=== PATIENT | male | born 1955 | race Two or more races ===

== ENCOUNTER 2022-05-05 05:05 | Inpatient (IN) | payer OTHER, MEDICAID ==
[~2022-05-05] VITALS: Ht 175.3 cm; Wt 167.0 kg
[2022-05-05 06:11] LABS: Basophils # (auto) 0 10 ^3/uL (0-0.2); Eosinophils # (auto) 0.2 10 ^3/uL (0-0.8); Eosinophils % (auto) 4.7 % (0.0-7.0); Hemoglobin 11.1 g/dL (13.5-17.5); Mean Corpuscular Hemoglobin 23.6 pg (28.0-32.0)
[2022-05-05 06:15] LABS: Basophils % (auto) 1.1 % (0.0-2.0); Hematocrit 36.4 % (41.0-53.0); Lymphocytes # (auto) 1.1 10 ^3/uL (0.4-5.4); Lymphocytes % (auto) 24.6 % (10.0-50.0); Mean Corpuscular Hgb Conc. 30.6 g/dL (32.0-36.0); Mean Corpuscular Volume 77.2 fL (80.0-100.0); Monocytes # (auto) 0.5 10 ^3/uL (0-1.3); Monocytes % (auto) 10.5 % (0.0-12.0); Neutrophils # (auto) 2.5 10 ^3/uL (1.6-8.6); Neutrophils % (auto) 59.1 % (37.0-80.0); Nucleated Red Blood Cells % 0.2 %; Red Blood Cells 4.71 10^6/uL (4.5-5.90); Red Cell Distribution Width 14.4 % (11.8-14.3); White Blood Cell 4.3 10^3/uL (4.4-10.8)
[2022-05-05 06:27] LABS: Albumin 3.6 g/dL (3.4-5.0); Calcium 8.4 mg/dL (8.5-10.1); Potassium 4.6 mmol/L (3.5-5.1)
[2022-05-05 06:31] LABS: BUN/Creatinine Ratio 13.1; Bilirubin, Total 0.4 mg/dL (0.2-1.0); Total Protein 7.9 g/dL (6.4-8.2)
[2022-05-05] MEDS ORDERED: FUROSEMIDE 40 MG/4 ML VIAL IV ONE (06:45)
[2022-05-05] MEDS ORDERED: IOHEXOL 350 MG/ML 100ML IJ ONE (11:18)
[2022-05-05] MEDS ORDERED: HYDROcodone-ACET 10/325MG TAB PO ONE (15:15)
[2022-05-05] MEDS ORDERED: NITROGLYCERIN 0.4 MG SL TAB SL PRN (16:00)
[2022-05-05] MEDS ORDERED: MORPHINE SULFATE INJ 2 MG/ml SYRG IV PRN ×2 (16:00)
[2022-05-05] MEDS ORDERED: ONDANSETRON HCL 4 MG/2 ML VIAL IV PRN (16:00)
[2022-05-05] MEDS ORDERED: ACETAMINOPHEN 325 MG TAB PO PRN (16:00)
[2022-05-05] MEDS ORDERED: IPRATROPIUM BROM 0.5 MG/2.5ML INH SOL NEB PRN (17:15)
[2022-05-05] MEDS ORDERED: ALBUTEROL SULF 2.5 MG/0.5ML(0.5%) NEB SOLN NEB PRN (17:15)
[2022-05-05] MEDS ORDERED: cefTRIAXone 1GM/50ML D5W 50 ML IV SCH (17:30)
[2022-05-05 18:17] VITALS: BP 147/90
[2022-05-05] MEDS: IPRATROPIUM BROM 0.5 MG/2.5ML INH SOL NEB SCH ×2 (18:35→22:40)
[2022-05-05] MEDS: ACETYLCYSTEINE 20%(200MG/ML) SOL 4ML NEB SCH (18:35)
[2022-05-05] MEDS: ALBUTEROL SULF 2.5 MG/0.5ML(0.5%) NEB SOLN NEB SCH ×2 (18:35→22:40)
[2022-05-05 18:43] VITALS: BP 152/69
[2022-05-05 18:46] VITALS: BP 152/69
[2022-05-05] MEDS ORDERED: IPRIH INH (19:08)
[2022-05-05] MEDS ORDERED: CARV12.544 PO (19:08)
[2022-05-05] MEDS ORDERED: PRED10TA PO (19:08)
[2022-05-05] MEDS ORDERED: MORP30TA5 PO (19:08)
[2022-05-05] MEDS ORDERED: FORM20NE3 INH (19:08)
[2022-05-05] MEDS ORDERED: BUDE0.5S NEB (19:08)
[2022-05-05] MEDS ORDERED: ALBU108A5 INH (19:08)
[2022-05-05] MEDS ORDERED: FLUT1AER3 PO (19:08)
[2022-05-05] MEDS: AZITHROMYCIN 250 MG TAB PO SCH (19:53)
[2022-05-05] MEDS: HYDROcodone-ACET 5/325MG TAB PO PRN (21:17)
[2022-05-05 22:20] VITALS: BP 144/76
[2022-05-06] MEDS: PIPERACILLIN-TAZOB 3.375GM 100 ML IV SCH ×5 (00:24→23:15)
[2022-05-06] MEDS: ALBUTEROL SULF 2.5 MG/0.5ML(0.5%) NEB SOLN NEB SCH ×6 (02:00→22:18)
[2022-05-06] MEDS: IPRATROPIUM BROM 0.5 MG/2.5ML INH SOL NEB SCH ×6 (02:00→22:19)
[2022-05-06 05:25] VITALS: BP 137/79
[2022-05-06 05:54] LABS: Basophils # (auto) 0 10 ^3/uL (0-0.2); Basophils % (auto) 0.8 % (0.0-2.0); Eosinophils # (auto) 0.2 10 ^3/uL (0-0.8); Lymphocytes # (auto) 0.7 10 ^3/uL (0.4-5.4); Monocytes # (auto) 0.5 10 ^3/uL (0-1.3); Nucleated Red Blood Cells % 0.1 %; Red Cell Distribution Width 14.5 % (11.8-14.3)
[2022-05-06 05:56] LABS: Potassium 4.1 mmol/L (3.5-5.1)
[2022-05-06 06:00] LABS: Eosinophils % (auto) 3.4 % (0.0-7.0); Hematocrit 37.6 % (41.0-53.0); Hemoglobin 11.6 g/dL (13.5-17.5); Lymphocytes % (auto) 14.6 % (10.0-50.0); Mean Corpuscular Hemoglobin 23.3 pg (28.0-32.0); Mean Corpuscular Hgb Conc. 30.8 g/dL (32.0-36.0); Mean Corpuscular Volume 75.8 fL (80.0-100.0); Neutrophils # (auto) 3.5 10 ^3/uL (1.6-8.6); Neutrophils % (auto) 71.2 % (37.0-80.0); Red Blood Cells 4.96 10^6/uL (4.5-5.90); White Blood Cell 4.9 10^3/uL (4.4-10.8)
[2022-05-06 06:02] LABS: Albumin 3.4 g/dL (3.4-5.0); BUN/Creatinine Ratio 14.8; Bilirubin, Total 0.7 mg/dL (0.2-1.0); Calcium 8.5 mg/dL (8.5-10.1); Total Protein 7.7 g/dL (6.4-8.2)
[2022-05-06] MEDS: ACETYLCYSTEINE 20%(200MG/ML) SOL 4ML NEB SCH ×3 (07:28→22:18)
[2022-05-06 09:00] VITALS: BP 125/79
[2022-05-06] MEDS: ENOXAPARIN SOD 40 MG/0.4 ML SYRINGE SC SCH (10:00)
[2022-05-06] MEDS: AZITHROMYCIN 250 MG TAB PO SCH (10:45)
[2022-05-06 11:06] LABS: INR 1.1 (0.9-1.15); Partial Thromboplastin Time 31.4 sec (23.6-33.0)
[2022-05-06 12:43] VITALS: BP 131/86
[2022-05-06] MEDS: HYDROcodone-ACET 5/325MG TAB PO PRN ×2 (14:55→23:15)
[2022-05-06 17:00] VITALS: BP 138/68
[2022-05-06 22:00] VITALS: BP 119/45
[2022-05-06] MEDS ORDERED: PERCOT PO (23:22)
[2022-05-07] MEDS: ALBUTEROL SULF 2.5 MG/0.5ML(0.5%) NEB SOLN NEB SCH ×6 (02:18→23:32)
[2022-05-07] MEDS: IPRATROPIUM BROM 0.5 MG/2.5ML INH SOL NEB SCH ×6 (02:18→23:32)
[2022-05-07] MEDS: HYDROcodone-ACET 10/325MG TAB PO PRN ×3 (04:31→19:54)
[2022-05-07] MEDS: PIPERACILLIN-TAZOB 3.375GM 100 ML IV SCH ×3 (05:12→19:55)
[2022-05-07 05:29] VITALS: BP 106/69
[2022-05-07] MEDS: ACETYLCYSTEINE 20%(200MG/ML) SOL 4ML NEB SCH ×3 (06:55→22:00)
[2022-05-07 08:48] VITALS: BP 113/71
[2022-05-07] MEDS ORDERED: ALBUTEROL SULF 2.5 MG/0.5ML(0.5%) NEB SOLN NEB PRN (09:15)
[2022-05-07] MEDS: ENOXAPARIN SOD 40 MG/0.4 ML SYRINGE SC SCH (11:26)
[2022-05-07] MEDS: AZITHROMYCIN 250 MG TAB PO SCH (11:26)
[2022-05-07 13:00] VITALS: BP 141/86
[2022-05-07 17:00] VITALS: BP 116/53
[2022-05-07 23:01] VITALS: BP 123/66
[2022-05-08] MEDS: PIPERACILLIN-TAZOB 3.375GM 100 ML IV SCH ×4 (01:43→20:14)
[2022-05-08] MEDS: HYDROcodone-ACET 10/325MG TAB PO PRN ×2 (01:45→20:15)
[2022-05-08] MEDS: IPRATROPIUM BROM 0.5 MG/2.5ML INH SOL NEB SCH ×6 (02:57→22:54)
[2022-05-08] MEDS: ALBUTEROL SULF 2.5 MG/0.5ML(0.5%) NEB SOLN NEB SCH ×6 (02:57→22:54)
[2022-05-08 04:53] VITALS: BP 126/56
[2022-05-08] MEDS: ACETYLCYSTEINE 20%(200MG/ML) SOL 4ML NEB SCH ×2 (06:00→16:08)
[2022-05-08 06:34] LABS: Basophils # (auto) 0.1 10 ^3/uL (0-0.2); Eosinophils # (auto) 0.2 10 ^3/uL (0-0.8); Hemoglobin 11.2 g/dL (13.5-17.5); Monocytes # (auto) 0.5 10 ^3/uL (0-1.3); Neutrophils # (auto) 2.8 10 ^3/uL (1.6-8.6); Neutrophils % (auto) 60.2 % (37.0-80.0); White Blood Cell 4.6 10^3/uL (4.4-10.8)
[2022-05-08 06:40] LABS: Basophils % (auto) 1.1 % (0.0-2.0); Eosinophils % (auto) 4.2 % (0.0-7.0); Hematocrit 36.3 % (41.0-53.0); Lymphocytes % (auto) 22.8 % (10.0-50.0); Mean Corpuscular Hemoglobin 23.8 pg (28.0-32.0); Mean Corpuscular Hgb Conc. 30.8 g/dL (32.0-36.0); Mean Corpuscular Volume 77.3 fL (80.0-100.0); Monocytes % (auto) 11.7 % (0.0-12.0); Nucleated Red Blood Cells % 0.2 %; Red Cell Distribution Width 14.7 % (11.8-14.3)
[2022-05-08 06:56] LABS: Potassium 4.2 mmol/L (3.5-5.1)
[2022-05-08 07:01] LABS: BUN/Creatinine Ratio 12.7; Calcium 8.8 mg/dL (8.5-10.1); Magnesium 2.3 mg/dL (1.6-2.6)
[2022-05-08 08:57] VITALS: BP 164/85
[2022-05-08] MEDS: ENOXAPARIN SOD 40 MG/0.4 ML SYRINGE SC SCH (09:53)
[2022-05-08] MEDS: AZITHROMYCIN 250 MG TAB PO SCH (09:53)
[2022-05-08 13:00] VITALS: BP 149/71
[2022-05-08 17:00] VITALS: BP 138/54
[2022-05-08 22:00] VITALS: BP 137/62
[2022-05-09 00:34] VITALS: BP 137/62
[2022-05-09] MEDS: PIPERACILLIN-TAZOB 3.375GM 100 ML IV SCH ×3 (02:03→14:25)
[2022-05-09] MEDS: HYDROcodone-ACET 10/325MG TAB PO PRN ×2 (02:03→08:16)
[2022-05-09] MEDS: IPRATROPIUM BROM 0.5 MG/2.5ML INH SOL NEB SCH ×4 (02:56→15:02)
[2022-05-09] MEDS: ALBUTEROL SULF 2.5 MG/0.5ML(0.5%) NEB SOLN NEB SCH ×4 (02:56→15:02)
[2022-05-09 05:00] VITALS: BP 121/64
[2022-05-09] MEDS: ENOXAPARIN SOD 40 MG/0.4 ML SYRINGE SC SCH (08:17)
[2022-05-09 09:00] VITALS: BP 132/53
[2022-05-09] MEDS ORDERED: GLYCOPYRROLATE 0.2 MG/ML 1ML VIAL IV ONE (09:30)
[2022-05-09] MEDS ORDERED: AMOX-277 PO (11:28)
[2022-05-09 13:00] VITALS: BP 114/63
[2022-05-09 17:00] VITALS: BP 137/76
== END 2022-05-09 18:28 | disposition home health service (06) | DRG 193 ==
LOC: ER 05:05 → EDBD 05:05 → TELE 15:46 → TELE-WESTW 17:50
PROVIDERS: ADMIT Internal Medicine; ATTEND Internal Medicine
PROC: 0WJ93ZZ Inspection of Right Pleural Cavity, Percutaneous Approach (ICD-10-PCS; principal; 2022-05-06)
DX: J18.9 Pneumonia, unspecified organism (principal); J96.21 Acute and chronic respiratory failure with hypoxia; I50.43 Acute on chronic combined systolic (congestive) and diastolic (congestive) heart failure; C34.90 Malignant neoplasm of unspecified part of unspecified bronchus or lung; J98.11 Atelectasis; Z68.41 Body mass index [BMI] 40.0-44.9, adult; E66.01 Morbid (severe) obesity due to excess calories; Z20.822 Contact with and (suspected) exposure to COVID-19; I11.0 Hypertensive heart disease with heart failure; I25.2 Old myocardial infarction; Z85.118 Personal history of other malignant neoplasm of bronchus and lung; Z92.21 Personal history of antineoplastic chemotherapy; Z92.3 Personal history of irradiation; Z99.81 Dependence on supplemental oxygen
CPT/HCPCS: 36415; 71045; 71275; 76604; 76942; 80048; 80053; 83735; 83880; 84439; 84443; 84484; 85025; 85610; 85730; 93005; 94640; 96365; 96375; 99291; G0378; J2543

== ENCOUNTER 2022-06-19 17:33 | Inpatient (IN) | payer OTHER, MEDICAID ==
[~2022-06-19] VITALS: Ht 185.4 cm; Wt 154.9 kg
[2022-06-19 08:00] VITALS: BP 168/131
[~2022-06-19 17:33] MED LIST: ALBU108A5 INH; AMOX-277 PO; BUDE0.5S NEB; CARV12.544 PO; FLUT1AER3 PO; FORM20NE3 INH; IPRIH INH; MORP30TA5 PO; PERCOT PO; PRED10TA PO
[2022-06-19] MEDS ORDERED: cefTRIAXone 1GM/50ML D5W 50 ML IV ONE (18:15)
[2022-06-19] MEDS ORDERED: FUROSEMIDE 40 MG/4 ML VIAL IV ONE (18:15)
[2022-06-19] MEDS ORDERED: NITROGLYCERIN 0.4 MG SL TAB SL ONE ×3 (18:15→18:25)
[2022-06-19] MEDS ORDERED: methylPREDNISolone SOD SUCC 125 MG/2 ML VL IV ONE (18:15)
[2022-06-19 18:52] LABS: Basophils # (auto) 0.1 10 ^3/uL (0-0.2); Basophils % (auto) 0.7 % (0.0-2.0); Eosinophils # (auto) 0.1 10 ^3/uL (0-0.8); Eosinophils % (auto) 0.9 % (0.0-7.0); Hematocrit 44.5 % (41.0-53.0); Lymphocytes # (auto) 0.7 10 ^3/uL (0.4-5.4); Lymphocytes % (auto) 6.3 % (10.0-50.0); Mean Corpuscular Hemoglobin 22.2 pg (28.0-32.0); Mean Corpuscular Hgb Conc. 29.2 g/dL (32.0-36.0); Mean Corpuscular Volume 76.1 fL (80.0-100.0); Monocytes # (auto) 0.2 10 ^3/uL (0-1.3); Monocytes % (auto) 1.9 % (0.0-12.0); Neutrophils # (auto) 9.5 10 ^3/uL (1.6-8.6); Neutrophils % (auto) 90.2 % (37.0-80.0); Nucleated Red Blood Cells % 0.1 %; Red Blood Cells 5.85 10^6/uL (4.5-5.90); Red Cell Distribution Width 15.1 % (11.8-14.3); White Blood Cell 10.5 10^3/uL (4.4-10.8)
[2022-06-19] MEDS ORDERED: METOPROLOL TARTRATE 1MG/1ML-5ML VIAL IV ONE ×2 (19:00→19:15)
[2022-06-19] MEDS ORDERED: dilTIAZem 125mg/125ml BAG KIT 125 ML IV ONE (19:00)
[2022-06-19 19:05] LABS: Albumin 3.9 g/dL (3.4-5.0); Calcium 8.6 mg/dL (8.5-10.1)
[2022-06-19 19:09] LABS: BUN/Creatinine Ratio 22.3
[2022-06-19 19:11] LABS: Bilirubin, Total 0.7 mg/dL (0.2-1.0); Total Protein 8.9 g/dL (6.4-8.2)
[2022-06-19 20:00] VITALS: BP 168/131
[2022-06-19 21:39] VITALS: BP 121/89
[2022-06-19] MEDS ORDERED: AZITHROMYCIN 500MG/ 250ML 250 ML IV ONE (22:00)
[2022-06-19] MEDS ORDERED: HYDROcodone-ACET 5/325MG TAB PO PRN (22:00)
[2022-06-19] MEDS ORDERED: ONDANSETRON HCL 4 MG/2 ML VIAL IV PRN (22:00)
[2022-06-19] MEDS ORDERED: ACETAMINOPHEN 325 MG TAB PO PRN (22:00)
[2022-06-19 22:15] VITALS: BP 136/112
[2022-06-19] MEDS ORDERED: MORPHINE SULFATE INJ 2 MG/ml SYRG IV PRN (22:15)
[2022-06-19] MEDS ORDERED: NITROGLYCERIN 0.4 MG SL TAB SL PRN (22:15)
[2022-06-19] MEDS: ENOXAPARIN SOD 40 MG/0.4 ML SYRINGE SC SCH (22:30)
[2022-06-19] MEDS: CARVEDILOL 12.5 MG TAB PO SCH (22:56)
[2022-06-20] VITALS (7 sets, daily range): BP systolic 104–180; BP diastolic 70–108
[2022-06-20 05:21] LABS: Eosinophils # (auto) 0 10 ^3/uL (0-0.8); Lymphocytes # (auto) 0.7 10 ^3/uL (0.4-5.4); Monocytes # (auto) 0.7 10 ^3/uL (0-1.3); Nucleated Red Blood Cells % 0.1 %
[2022-06-20 05:37] LABS: Basophils # (auto) 0.1 10 ^3/uL (0-0.2); Basophils % (auto) 0.3 % (0.0-2.0); Hematocrit 44.5 % (41.0-53.0); Hemoglobin 13.7 g/dL (13.5-17.5); Lymphocytes % (auto) 3.7 % (10.0-50.0); Mean Corpuscular Hemoglobin 23.3 pg (28.0-32.0); Mean Corpuscular Hgb Conc. 30.9 g/dL (32.0-36.0); Mean Corpuscular Volume 75.6 fL (80.0-100.0); Neutrophils # (auto) 16.4 10 ^3/uL (1.6-8.6); Red Blood Cells 5.89 10^6/uL (4.5-5.90); Red Cell Distribution Width 15.1 % (11.8-14.3); White Blood Cell 17.9 10^3/uL (4.4-10.8)
[2022-06-20 05:47] LABS: Potassium 4.6 mmol/L (3.5-5.1)
[2022-06-20 05:56] LABS: Albumin 3.5 g/dL (3.4-5.0); BUN/Creatinine Ratio 22.1; Bilirubin, Total 0.6 mg/dL (0.2-1.0); Calcium 8.8 mg/dL (8.5-10.1)
[2022-06-20] MEDS: cefTRIAXone 1GM/50ML D5W 50 ML IV SCH (09:00)
[2022-06-20] MEDS ORDERED: methylPREDNISolone SOD SUCC 125 MG/2 ML VL IV SCH (10:00)
[2022-06-20] MEDS: ENOXAPARIN SOD 40 MG/0.4 ML SYRINGE SC SCH (10:00)
[2022-06-20] MEDS: ASPirin 81 mg TAB PO SCH (10:00)
[2022-06-20] MEDS: PANTOPRAZOLE 40 MG TAB PO SCH (11:07)
[2022-06-20] MEDS: CARVEDILOL 12.5 MG TAB PO SCH ×2 (11:07→22:00)
[2022-06-20] MEDS: FUROSEMIDE 40 MG TAB PO SCH (11:11)
[2022-06-20] MEDS ORDERED: REMDESIVIR PER PHARMACY 0 ML IV SCH (12:30)
[2022-06-20] MEDS ORDERED: OXYC325T14 PO (13:54)
[2022-06-20] MEDS ORDERED: PRED20TA2 PO (13:54)
[2022-06-20] MEDS ORDERED: REMDESIVIR 200 MG in NS 210ml LOADING DOSE ADULT IV ONE (15:00)
[2022-06-20] MEDS: AZITHROMYCIN 500MG/ 250ML 250 ML IV SCH (21:12)
[2022-06-20 22:32] LABS: Urine Bacteria NONE SEEN /hpf (None Seen); Urine Blood 3+ /uL (Negative); Urine Budding Yeast FEW /hpf (None Seen); Urine Hyaline Cast MANY /lpf (0 - 2); Urine Mucus FEW (None Seen); Urine Specific Gravity 1.026 (1.001-1.035); Urine WBC 36 /hpf (0 - 3)
[2022-06-20] MEDS ORDERED: ETOMIDATE (2MG/ML) 20ML VIAL IV ONE (23:15)
[2022-06-20] MEDS: MIDAZOLAM DRIP 50 mg/50mL 50 ML IV SCH (23:15)
[2022-06-20] MEDS ORDERED: ROCURONIUM 10MG/ML 10ML VIAL IV ONE ×2 (23:15→23:30)
[2022-06-20] MEDS ORDERED: MIDAZOLAM HCL 2MG/2ML 2ml VIAL (1mg/ml) ONE (23:16)
[2022-06-20] MEDS ORDERED: MIDAZOLAM DRIP 50 mg/50mL 50 ML IV ONE (23:17)
[2022-06-20] MEDS ORDERED: MIDAZOLAM HCL 2MG/2ML 2ml VIAL (1mg/ml) IV ONE (23:30)
[2022-06-21] VITALS (66 sets, daily range): BP systolic 85–130; BP diastolic 40–85
[2022-06-21] MEDS ORDERED: ETOMIDATE (2MG/ML) 20ML VIAL IV ONE
[2022-06-21] MEDS ORDERED: ATROPINE SULF 1 MG/10ml SYR IV ONE ×2
[2022-06-21] MEDS ORDERED: EPINEPHrine HCL 1 MG/10 ML SYRG IV ONE
[2022-06-21] MEDS: fentaNYL Drip 2500mCg/250mlNS 250 ML IV SCH (02:50)
[2022-06-21] MEDS: MIDAZOLAM DRIP 50 mg/50mL 50 ML IV SCH ×6 (02:55→21:07)
[2022-06-21 09:08] LABS: Albumin 2.8 g/dL (3.4-5.0); Calcium 8.5 mg/dL (8.5-10.1); Potassium 5.4 mmol/L (3.5-5.1)
[2022-06-21 09:11] LABS: BUN/Creatinine Ratio 27.3; Bilirubin, Total 0.3 mg/dL (0.2-1.0); Total Protein 7.4 g/dL (6.4-8.2)
[2022-06-21] MEDS: ASPirin 81 mg TAB PO SCH (09:44)
[2022-06-21] MEDS: CARVEDILOL 12.5 MG TAB PO SCH ×2 (09:47→22:00)
[2022-06-21] MEDS: FUROSEMIDE 40 MG TAB PO SCH (09:48)
[2022-06-21] MEDS: PANTOPRAZOLE 40 MG TAB PO SCH (09:48)
[2022-06-21] MEDS: ENOXAPARIN SOD 40 MG/0.4 ML SYRINGE SC SCH (09:49)
[2022-06-21] MEDS: cefTRIAXone 1GM/50ML D5W 50 ML IV SCH (09:54)
[2022-06-21] MEDS: DexAMETHasone SOD PHOS 10MG/1ML VIAL INJ IV SCH (09:54)
[2022-06-21 11:09] LABS: Basophils # (auto) 0 10 ^3/uL (0-0.2); Basophils % (auto) 0.2 % (0.0-2.0); Eosinophils # (auto) 0 10 ^3/uL (0-0.8); Hemoglobin 13.1 g/dL (13.5-17.5); Lymphocytes # (auto) 0.6 10 ^3/uL (0.4-5.4); Lymphocytes % (auto) 3.3 % (10.0-50.0); Mean Corpuscular Hemoglobin 22.4 pg (28.0-32.0); Mean Corpuscular Hgb Conc. 29.1 g/dL (32.0-36.0); Monocytes % (auto) 11.4 % (0.0-12.0); Neutrophils % (auto) 85.1 % (37.0-80.0); Nucleated Red Blood Cells % 0.1 %; Red Blood Cells 5.84 10^6/uL (4.5-5.90); Red Cell Distribution Width 15.5 % (11.8-14.3); White Blood Cell 17.6 10^3/uL (4.4-10.8)
[2022-06-21] MEDS: NOREPINEPHRINE 8 MG/250ML KIT 250 ML IV SCH (12:00)
[2022-06-21 13:49] LABS: INR 1.13 (0.9-1.15); Partial Thromboplastin Time 29.1 sec (24.6-33.4)
[2022-06-21] MEDS ORDERED: FUROSEMIDE 20 MG/2 ML VIAL IV ONE (14:45)
[2022-06-21] MEDS ORDERED: InsuLIN REG 1unit/0.01ml Soln (100units/ml) IV ONE (14:45)
[2022-06-21] MEDS ORDERED: ALBUTEROL SULF 2.5 MG/0.5ML(0.5%) NEB SOLN NEB ONE (14:45)
[2022-06-21] MEDS ORDERED: SODIUM BICARBONATE 8.4% INJ 50ML SYRINGE IV ONE (14:45)
[2022-06-21] MEDS ORDERED: DEXTROSE (50%) 50ML SYRG IV ONE (14:45)
[2022-06-21] MEDS ORDERED: LIDOCAINE 1% (LOCAL ANESTH.) PF 5ml SDV ID ONE (17:30)
[2022-06-21] MEDS: REMDESIVIR 100mg 100 MG in SODIUM CHL 0.9% 230 ML IV SCH (18:14)
[2022-06-21] MEDS: AZITHROMYCIN 500MG/ 250ML 250 ML IV SCH (21:08)
[2022-06-21] MEDS: SODIUM CHLOR 0.9% PF (SALINE LOCK) 10ML VIAL/SYR IV SCH (22:00)
[2022-06-22] VITALS (87 sets, daily range): BP systolic 90–135; BP diastolic 38–99
[2022-06-22] MEDS: MIDAZOLAM DRIP 50 mg/50mL 50 ML IV SCH ×6 (01:45→20:11)
[2022-06-22 04:23] LABS: Basophils # (auto) 0 10 ^3/uL (0-0.2); Eosinophils # (auto) 0 10 ^3/uL (0-0.8); Mean Corpuscular Volume 74.5 fL (80.0-100.0); White Blood Cell 13.6 10^3/uL (4.4-10.8)
[2022-06-22 04:24] LABS: Basophils % (auto) 0.2 % (0.0-2.0); Hematocrit 36.2 % (41.0-53.0); Hemoglobin 10.7 g/dL (13.5-17.5); Lymphocytes # (auto) 0.4 10 ^3/uL (0.4-5.4); Lymphocytes % (auto) 2.8 % (10.0-50.0); Mean Corpuscular Hgb Conc. 29.6 g/dL (32.0-36.0); Monocytes # (auto) 1.1 10 ^3/uL (0-1.3); Neutrophils # (auto) 12.1 10 ^3/uL (1.6-8.6); Nucleated Red Blood Cells % 0.1 %; Red Blood Cells 4.86 10^6/uL (4.5-5.90); Red Cell Distribution Width 14.8 % (11.8-14.3)
[2022-06-22 04:41] LABS: Potassium 3.9 mmol/L (3.5-5.1)
[2022-06-22 04:47] LABS: Albumin 2.5 g/dL (3.4-5.0); BUN/Creatinine Ratio 37.6; Bilirubin, Total 0.3 mg/dL (0.2-1.0); Calcium 7.8 mg/dL (8.5-10.1); Total Protein 6.5 g/dL (6.4-8.2)
[2022-06-22] MEDS: fentaNYL Drip 2500mCg/250mlNS 250 ML IV SCH (06:37)
[2022-06-22] MEDS: ENOXAPARIN SOD 40 MG/0.4 ML SYRINGE SC SCH (08:39)
[2022-06-22] MEDS: PANTOPRAZOLE 40 MG TAB PO SCH (08:39)
[2022-06-22] MEDS: CARVEDILOL 12.5 MG TAB PO SCH ×2 (08:39→22:00)
[2022-06-22] MEDS: DexAMETHasone SOD PHOS 10MG/1ML VIAL INJ IV SCH (08:40)
[2022-06-22] MEDS: cefTRIAXone 1GM/50ML D5W 50 ML IV SCH ×2 (08:40→09:00)
[2022-06-22] MEDS: FUROSEMIDE 20 MG/2 ML VIAL IV SCH (08:41)
[2022-06-22] MEDS: ASPirin 81 mg TAB PO SCH (08:41)
[2022-06-22] MEDS: SODIUM CHLOR 0.9% PF (SALINE LOCK) 10ML VIAL/SYR IV SCH ×2 (08:42→22:00)
[2022-06-22] MEDS ORDERED: EPINEPHrine HCL 1 MG/10 ML SYRG IV ONE (11:55)
[2022-06-22] MEDS ORDERED: ATROPINE SULF 1 MG/10ml SYR IV ONE (11:55)
[2022-06-22] MEDS: NOREPINEPHRINE 8 MG/250ML KIT 250 ML IV SCH (12:00)
[2022-06-22] MEDS: REMDESIVIR 100mg 100 MG in SODIUM CHL 0.9% 230 ML IV SCH (15:15)
[2022-06-22] MEDS: AZITHROMYCIN 500MG/ 250ML 250 ML IV SCH (21:00)
[2022-06-23] VITALS (88 sets, daily range): BP systolic 85–148; BP diastolic 15–92
[2022-06-23 05:10] LABS: Basophils # (auto) 0 10 ^3/uL (0-0.2); Eosinophils # (auto) 0 10 ^3/uL (0-0.8); Hemoglobin 11.3 g/dL (13.5-17.5); Lymphocytes # (auto) 0.3 10 ^3/uL (0.4-5.4); Mean Corpuscular Volume 74.1 fL (80.0-100.0); Monocytes # (auto) 0.9 10 ^3/uL (0-1.3); Neutrophils # (auto) 11.8 10 ^3/uL (1.6-8.6); Nucleated Red Blood Cells % 0.2 %
[2022-06-23 05:12] LABS: Basophils % (auto) 0.2 % (0.0-2.0); Hematocrit 37.3 % (41.0-53.0); Lymphocytes % (auto) 2.1 % (10.0-50.0); Mean Corpuscular Hemoglobin 22.5 pg (28.0-32.0); Mean Corpuscular Hgb Conc. 30.3 g/dL (32.0-36.0); Neutrophils % (auto) 90.7 % (37.0-80.0); Red Blood Cells 5.04 10^6/uL (4.5-5.90); Red Cell Distribution Width 14.8 % (11.8-14.3)
[2022-06-23 05:21] LABS: Albumin 2.6 g/dL (3.4-5.0); Calcium 8.3 mg/dL (8.5-10.1); Potassium 4.3 mmol/L (3.5-5.1)
[2022-06-23 05:25] LABS: BUN/Creatinine Ratio 36.4; Bilirubin, Total 0.3 mg/dL (0.2-1.0); Total Protein 6.9 g/dL (6.4-8.2)
[2022-06-23] MEDS: MIDAZOLAM DRIP 50 mg/50mL 50 ML IV SCH ×3 (07:27→16:21)
[2022-06-23] MEDS: fentaNYL Drip 2500mCg/250mlNS 250 ML IV SCH (09:05)
[2022-06-23] MEDS: PANTOPRAZOLE 40 MG TAB PO SCH (10:00)
[2022-06-23] MEDS: CARVEDILOL 12.5 MG TAB PO SCH ×2 (10:00→22:00)
[2022-06-23] MEDS: cefTRIAXone 1GM/50ML D5W 50 ML IV SCH (10:03)
[2022-06-23] MEDS: FUROSEMIDE 20 MG/2 ML VIAL IV SCH (10:03)
[2022-06-23] MEDS: ENOXAPARIN SOD 40 MG/0.4 ML SYRINGE SC SCH (10:04)
[2022-06-23] MEDS: DexAMETHasone SOD PHOS 10MG/1ML VIAL INJ IV SCH (10:05)
[2022-06-23] MEDS: SODIUM CHLOR 0.9% PF (SALINE LOCK) 10ML VIAL/SYR IV SCH ×2 (10:06→22:00)
[2022-06-23] MEDS: ASPirin 81 mg TAB PO SCH (10:07)
[2022-06-23] MEDS: NOREPINEPHRINE 8 MG/250ML KIT 250 ML IV SCH (12:00)
[2022-06-23] MEDS: REMDESIVIR 100mg 100 MG in SODIUM CHL 0.9% 230 ML IV SCH (16:22)
[2022-06-23] MEDS: AZITHROMYCIN 500MG/ 250ML 250 ML IV SCH (20:53)
[2022-06-24] VITALS (42 sets, daily range): BP systolic 92–170; BP diastolic 45–123
[2022-06-24] MEDS: fentaNYL Drip 2500mCg/250mlNS 250 ML IV SCH (02:45)
[2022-06-24 03:49] LABS: Basophils % (auto) 0.4 % (0.0-2.0); Eosinophils # (auto) 0 10 ^3/uL (0-0.8); Nucleated Red Blood Cells % 0.1 %
[2022-06-24 03:52] LABS: Basophils # (auto) 0.1 10 ^3/uL (0-0.2); Hemoglobin 11.3 g/dL (13.5-17.5); Lymphocytes # (auto) 0.3 10 ^3/uL (0.4-5.4); Lymphocytes % (auto) 2.8 % (10.0-50.0); Mean Corpuscular Hgb Conc. 29.8 g/dL (32.0-36.0); Mean Corpuscular Volume 73.9 fL (80.0-100.0); Monocytes # (auto) 0.8 10 ^3/uL (0-1.3); Monocytes % (auto) 6.8 % (0.0-12.0); Neutrophils # (auto) 10.1 10 ^3/uL (1.6-8.6); Red Blood Cells 5.14 10^6/uL (4.5-5.90); Red Cell Distribution Width 14.9 % (11.8-14.3); White Blood Cell 11.2 10^3/uL (4.4-10.8)
[2022-06-24 04:09] LABS: Calcium 8.1 mg/dL (8.5-10.1); Potassium 4.4 mmol/L (3.5-5.1)
[2022-06-24 04:15] LABS: Albumin 2.5 g/dL (3.4-5.0); BUN/Creatinine Ratio 36.4; Bilirubin, Total 0.2 mg/dL (0.2-1.0); Total Protein 6.7 g/dL (6.4-8.2)
[2022-06-24] MEDS: cefTRIAXone 1GM/50ML D5W 50 ML IV SCH ×2 (09:38→17:08)
[2022-06-24] MEDS: ENOXAPARIN SOD 40 MG/0.4 ML SYRINGE SC SCH (09:39)
[2022-06-24] MEDS: SODIUM CHLOR 0.9% PF (SALINE LOCK) 10ML VIAL/SYR IV SCH (09:40)
[2022-06-24] MEDS: DexAMETHasone SOD PHOS 10MG/1ML VIAL INJ IV SCH (09:41)
[2022-06-24] MEDS: PANTOPRAZOLE 40 MG TAB PO SCH (10:00)
[2022-06-24] MEDS: ASPirin 81 mg TAB PO SCH (10:00)
[2022-06-24] MEDS: NOREPINEPHRINE 8 MG/250ML KIT 250 ML IV SCH (12:00)
[2022-06-24] MEDS: AZITHROMYCIN 500MG/ 250ML 250 ML IV SCH (21:00)
[2022-06-25] VITALS (55 sets, daily range): BP systolic 96–188; BP diastolic 43–110
[2022-06-25] MEDS: MIDAZOLAM DRIP 50 mg/50mL 50 ML IV SCH ×3 (00:18→21:29)
[2022-06-25] MEDS: SODIUM CHLOR 0.9% PF (SALINE LOCK) 10ML VIAL/SYR IV SCH ×3 (00:19→21:30)
[2022-06-25] MEDS: fentaNYL Drip 2500mCg/250mlNS 250 ML IV SCH ×2 (01:59→21:30)
[2022-06-25 03:42] LABS: Basophils # (auto) 0 10 ^3/uL (0-0.2); Eosinophils # (auto) 0 10 ^3/uL (0-0.8); Lymphocytes # (auto) 0.7 10 ^3/uL (0.4-5.4); Nucleated Red Blood Cells % 0.2 %
[2022-06-25 03:46] LABS: Basophils % (auto) 0.2 % (0.0-2.0); Eosinophils % (auto) 0.1 % (0.0-7.0); Hematocrit 41.5 % (41.0-53.0); Hemoglobin 12.4 g/dL (13.5-17.5); Lymphocytes % (auto) 4.9 % (10.0-50.0); Mean Corpuscular Hemoglobin 22.5 pg (28.0-32.0); Mean Corpuscular Hgb Conc. 29.9 g/dL (32.0-36.0); Monocytes # (auto) 1.1 10 ^3/uL (0-1.3); Monocytes % (auto) 7.5 % (0.0-12.0); Neutrophils # (auto) 12.4 10 ^3/uL (1.6-8.6); Neutrophils % (auto) 87.3 % (37.0-80.0); Red Blood Cells 5.54 10^6/uL (4.5-5.90); Red Cell Distribution Width 14.9 % (11.8-14.3); White Blood Cell 14.2 10^3/uL (4.4-10.8)
[2022-06-25 04:01] LABS: BUN/Creatinine Ratio 38.4; Calcium 8.2 mg/dL (8.5-10.1); Potassium 4.4 mmol/L (3.5-5.1)
[2022-06-25] MEDS: PANTOPRAZOLE 40 MG TAB PO SCH (10:00)
[2022-06-25] MEDS: ENOXAPARIN SOD 40 MG/0.4 ML SYRINGE SC SCH (11:52)
[2022-06-25] MEDS: DexAMETHasone SOD PHOS 10MG/1ML VIAL INJ IV SCH (11:52)
[2022-06-25] MEDS: cefTRIAXone 1GM/50ML D5W 50 ML IV SCH (11:52)
[2022-06-25] MEDS: ASPirin 81 mg TAB PO SCH (11:53)
[2022-06-25] MEDS: NOREPINEPHRINE 8 MG/250ML KIT 250 ML IV SCH (11:53)
[2022-06-25] MEDS: AZITHROMYCIN 500MG/ 250ML 250 ML IV SCH (21:29)
[2022-06-26] VITALS (105 sets, daily range): BP systolic 82–281; BP diastolic 31–231
[2022-06-26 03:23] LABS: Basophils # (auto) 0 10 ^3/uL (0-0.2); Red Cell Distribution Width 14.8 % (11.8-14.3)
[2022-06-26 03:28] LABS: Basophils % (auto) 0.2 % (0.0-2.0); Eosinophils # (auto) 0.3 10 ^3/uL (0-0.8); Hematocrit 42.4 % (41.0-53.0); Hemoglobin 12.5 g/dL (13.5-17.5); Lymphocytes # (auto) 1.3 10 ^3/uL (0.4-5.4); Lymphocytes % (auto) 8.7 % (10.0-50.0); Mean Corpuscular Hemoglobin 22.2 pg (28.0-32.0); Mean Corpuscular Hgb Conc. 29.6 g/dL (32.0-36.0); Monocytes # (auto) 1.9 10 ^3/uL (0-1.3); Monocytes % (auto) 13.1 % (0.0-12.0); Neutrophils # (auto) 11.2 10 ^3/uL (1.6-8.6); Nucleated Red Blood Cells % 0.3 %; Red Blood Cells 5.65 10^6/uL (4.5-5.90); White Blood Cell 14.7 10^3/uL (4.4-10.8)
[2022-06-26] MEDS: hydrALAZINE HCL 20 MG/ML VL IV PRN (03:42)
[2022-06-26 03:45] LABS: Albumin 2.9 g/dL (3.4-5.0); BUN/Creatinine Ratio 43.8; Calcium 8.3 mg/dL (8.5-10.1); Potassium 4.4 mmol/L (3.5-5.1)
[2022-06-26 03:48] LABS: Bilirubin, Total 0.3 mg/dL (0.2-1.0); Total Protein 7.1 g/dL (6.4-8.2)
[2022-06-26] MEDS: MIDAZOLAM DRIP 50 mg/50mL 50 ML IV SCH ×3 (06:38→23:48)
[2022-06-26] MEDS: fentaNYL Drip 2500mCg/250mlNS 250 ML IV SCH ×2 (07:39→20:11)
[2022-06-26] MEDS: PANTOPRAZOLE 40 MG TAB PO SCH (10:16)
[2022-06-26] MEDS: ASPirin 81 mg TAB PO SCH (10:16)
[2022-06-26] MEDS: DexAMETHasone SOD PHOS 10MG/1ML VIAL INJ IV SCH (10:17)
[2022-06-26] MEDS: ENOXAPARIN SOD 40 MG/0.4 ML SYRINGE SC SCH (10:17)
[2022-06-26] MEDS: SODIUM CHLOR 0.9% PF (SALINE LOCK) 10ML VIAL/SYR IV SCH ×2 (10:17→21:29)
[2022-06-26] MEDS: cefTRIAXone 1GM/50ML D5W 50 ML IV SCH (11:36)
[2022-06-26] MEDS: NOREPINEPHRINE 8 MG/250ML KIT 250 ML IV SCH (12:00)
[2022-06-26] MEDS: ALBUTEROL SULF 2.5 MG/0.5ML(0.5%) NEB SOLN NEB PRN (18:30)
[2022-06-26] MEDS: AZITHROMYCIN 500MG/ 250ML 250 ML IV SCH (21:28)
[2022-06-27] VITALS (100 sets, daily range): BP systolic 91–202; BP diastolic 41–171
[2022-06-27] MEDS: ALBUTEROL SULF 2.5 MG/0.5ML(0.5%) NEB SOLN NEB PRN ×3 (00:31→18:58)
[2022-06-27 04:01] LABS: Basophils # (auto) 0 10 ^3/uL (0-0.2); Eosinophils # (auto) 0 10 ^3/uL (0-0.8); Eosinophils % (auto) 0.1 % (0.0-7.0); Lymphocytes # (auto) 0.6 10 ^3/uL (0.4-5.4)
[2022-06-27 04:02] LABS: Hematocrit 38.4 % (41.0-53.0); Hemoglobin 11.7 g/dL (13.5-17.5); Lymphocytes % (auto) 4.6 % (10.0-50.0); Mean Corpuscular Hemoglobin 22.5 pg (28.0-32.0); Mean Corpuscular Hgb Conc. 30.4 g/dL (32.0-36.0); Monocytes % (auto) 7.9 % (0.0-12.0); Neutrophils # (auto) 11.3 10 ^3/uL (1.6-8.6); Neutrophils % (auto) 87.4 % (37.0-80.0); Nucleated Red Blood Cells % 0.1 %; Red Blood Cells 5.19 10^6/uL (4.5-5.90); Red Cell Distribution Width 15.2 % (11.8-14.3); White Blood Cell 12.9 10^3/uL (4.4-10.8)
[2022-06-27 04:16] LABS: Albumin 2.6 g/dL (3.4-5.0); Calcium 8.1 mg/dL (8.5-10.1); Potassium 4.6 mmol/L (3.5-5.1)
[2022-06-27 04:17] LABS: BUN/Creatinine Ratio 40.4
[2022-06-27 04:20] LABS: Bilirubin, Total 0.3 mg/dL (0.2-1.0); Total Protein 6.7 g/dL (6.4-8.2)
[2022-06-27] MEDS: fentaNYL Drip 2500mCg/250mlNS 250 ML IV SCH ×2 (09:13→22:31)
[2022-06-27] MEDS: cefTRIAXone 1GM/50ML D5W 50 ML IV SCH (09:15)
[2022-06-27] MEDS: ENOXAPARIN SOD 40 MG/0.4 ML SYRINGE SC SCH (10:15)
[2022-06-27] MEDS: ASPirin 81 mg TAB PO SCH (10:15)
[2022-06-27] MEDS: PANTOPRAZOLE 40 MG TAB PO SCH (10:15)
[2022-06-27] MEDS: SODIUM CHLOR 0.9% PF (SALINE LOCK) 10ML VIAL/SYR IV SCH ×2 (10:15→22:02)
[2022-06-27] MEDS: DexAMETHasone SOD PHOS 10MG/1ML VIAL INJ IV SCH (10:15)
[2022-06-27] MEDS: NOREPINEPHRINE 8 MG/250ML KIT 250 ML IV SCH (12:00)
[2022-06-27] MEDS: AZITHROMYCIN 500MG/ 250ML 250 ML IV SCH (22:02)
[2022-06-28] VITALS (57 sets, daily range): BP systolic 99–240; BP diastolic 51–133
[2022-06-28] MEDS: ALBUTEROL SULF 2.5 MG/0.5ML(0.5%) NEB SOLN NEB PRN (00:32)
[2022-06-28] MEDS: MIDAZOLAM DRIP 50 mg/50mL 50 ML IV SCH ×3 (02:58→22:35)
[2022-06-28 04:50] LABS: Calcium 8.8 mg/dL (8.5-10.1); Potassium 5.5 mmol/L (3.5-5.1)
[2022-06-28 04:53] LABS: Basophils # (auto) 0 10 ^3/uL (0-0.2); Basophils % (auto) 0.2 % (0.0-2.0); Eosinophils # (auto) 0.3 10 ^3/uL (0-0.8); Eosinophils % (auto) 2.1 % (0.0-7.0); Lymphocytes # (auto) 1.2 10 ^3/uL (0.4-5.4)
[2022-06-28 04:58] LABS: BUN/Creatinine Ratio 37.6
[2022-06-28 05:12] LABS: Hematocrit 42.2 % (41.0-53.0); Hemoglobin 12.8 g/dL (13.5-17.5); Lymphocytes % (auto) 8.9 % (10.0-50.0); Mean Corpuscular Hemoglobin 22.6 pg (28.0-32.0); Mean Corpuscular Hgb Conc. 30.3 g/dL (32.0-36.0); Mean Corpuscular Volume 74.6 fL (80.0-100.0); Monocytes # (auto) 1.6 10 ^3/uL (0-1.3); Monocytes % (auto) 11.6 % (0.0-12.0); Neutrophils # (auto) 10.5 10 ^3/uL (1.6-8.6); Neutrophils % (auto) 77.2 % (37.0-80.0); Nucleated Red Blood Cells % 0.4 %; Red Blood Cells 5.66 10^6/uL (4.5-5.90); Red Cell Distribution Width 15.4 % (11.8-14.3); White Blood Cell 13.6 10^3/uL (4.4-10.8)
[2022-06-28] MEDS: cefTRIAXone 1GM/50ML D5W 50 ML IV SCH (09:00)
[2022-06-28] MEDS: DexAMETHasone SOD PHOS 10MG/1ML VIAL INJ IV SCH (10:00)
[2022-06-28] MEDS: ENOXAPARIN SOD 40 MG/0.4 ML SYRINGE SC SCH (10:00)
[2022-06-28] MEDS: ASPirin 81 mg TAB PO SCH (10:00)
[2022-06-28] MEDS: PANTOPRAZOLE 40 MG TAB PO SCH (10:00)
[2022-06-28] MEDS ORDERED: ROCURONIUM 10MG/ML 10ML VIAL IV ONE ×2 (19:36→22:30)
[2022-06-28] MEDS: hydrALAZINE HCL 20 MG/ML VL IV PRN (20:03)
[2022-06-28] MEDS: AZITHROMYCIN 500MG/ 250ML 250 ML IV SCH (22:25)
[2022-06-28] MEDS: fentaNYL Drip 2500mCg/250mlNS 250 ML IV SCH (22:34)
[2022-06-28] MEDS: SODIUM CHLOR 0.9% PF (SALINE LOCK) 10ML VIAL/SYR IV SCH (22:51)
[2022-06-29] VITALS (101 sets, daily range): BP systolic 81–154; BP diastolic 22–87
[2022-06-29] MEDS: ALBUTEROL SULF 2.5 MG/0.5ML(0.5%) NEB SOLN NEB PRN (02:36)
[2022-06-29] MEDS: MIDAZOLAM DRIP 50 mg/50mL 50 ML IV SCH ×4 (03:25→22:39)
[2022-06-29 06:25] LABS: Eosinophils # (auto) 0.2 10 ^3/uL (0-0.8)
[2022-06-29 06:26] LABS: Basophils # (auto) 0 10 ^3/uL (0-0.2); Eosinophils % (auto) 1.3 % (0.0-7.0); Hematocrit 40.1 % (41.0-53.0); Hemoglobin 12.3 g/dL (13.5-17.5); Lymphocytes # (auto) 0.6 10 ^3/uL (0.4-5.4); Lymphocytes % (auto) 4.7 % (10.0-50.0); Mean Corpuscular Hemoglobin 22.9 pg (28.0-32.0); Mean Corpuscular Hgb Conc. 30.5 g/dL (32.0-36.0); Monocytes # (auto) 1.6 10 ^3/uL (0-1.3); Monocytes % (auto) 12.4 % (0.0-12.0); Neutrophils # (auto) 10.6 10 ^3/uL (1.6-8.6); Neutrophils % (auto) 81.6 % (37.0-80.0); Nucleated Red Blood Cells % 0.2 %; Red Blood Cells 5.35 10^6/uL (4.5-5.90); Red Cell Distribution Width 15.1 % (11.8-14.3)
[2022-06-29 06:36] LABS: BUN/Creatinine Ratio 42.4; Calcium 8.3 mg/dL (8.5-10.1); Potassium 4.7 mmol/L (3.5-5.1)
[2022-06-29] MEDS: DexAMETHasone SOD PHOS 10MG/1ML VIAL INJ IV SCH (09:57)
[2022-06-29] MEDS: ENOXAPARIN SOD 40 MG/0.4 ML SYRINGE SC SCH (09:57)
[2022-06-29] MEDS: PANTOPRAZOLE 40 MG TAB PO SCH (09:57)
[2022-06-29] MEDS: ASPirin 81 mg TAB PO SCH (09:57)
[2022-06-29] MEDS: cefTRIAXone 1GM/50ML D5W 50 ML IV SCH (09:57)
[2022-06-29] MEDS: SODIUM CHLOR 0.9% PF (SALINE LOCK) 10ML VIAL/SYR IV SCH ×2 (10:00→23:36)
[2022-06-29] MEDS: AZITHROMYCIN 500MG/ 250ML 250 ML IV SCH (21:16)
[2022-06-29] MEDS: fentaNYL Drip 2500mCg/250mlNS 250 ML IV SCH (21:25)
[2022-06-30] VITALS (55 sets, daily range): BP systolic 62–207; BP diastolic 39–98
[2022-06-30] MEDS: MIDAZOLAM DRIP 50 mg/50mL 50 ML IV SCH ×2 (02:54→06:30)
[2022-06-30 06:22] LABS: Basophils # (auto) 0 10 ^3/uL (0-0.2); Basophils % (auto) 0.1 % (0.0-2.0); Eosinophils # (auto) 0 10 ^3/uL (0-0.8); Eosinophils % (auto) 0.1 % (0.0-7.0); Hematocrit 36.1 % (41.0-53.0); Hemoglobin 10.8 g/dL (13.5-17.5); Lymphocytes # (auto) 0.5 10 ^3/uL (0.4-5.4); Lymphocytes % (auto) 4.5 % (10.0-50.0); Mean Corpuscular Hemoglobin 22.5 pg (28.0-32.0); Mean Corpuscular Volume 74.7 fL (80.0-100.0); Monocytes # (auto) 0.9 10 ^3/uL (0-1.3); Monocytes % (auto) 7.9 % (0.0-12.0); Neutrophils # (auto) 9.9 10 ^3/uL (1.6-8.6); Neutrophils % (auto) 87.4 % (37.0-80.0); Nucleated Red Blood Cells % 0.1 %; Red Blood Cells 4.82 10^6/uL (4.5-5.90); Red Cell Distribution Width 14.8 % (11.8-14.3); White Blood Cell 11.3 10^3/uL (4.4-10.8)
[2022-06-30 06:33] LABS: BUN/Creatinine Ratio 48.6; Potassium 4.6 mmol/L (3.5-5.1)
[2022-06-30 06:34] LABS: Calcium 7.9 mg/dL (8.5-10.1)
[2022-06-30] MEDS: NOREPINEPHRINE 8 MG/250ML KIT 250 ML IV SCH ×3 (08:18→11:55)
[2022-06-30] MEDS: SODIUM CHLOR 0.9% PF (SALINE LOCK) 10ML VIAL/SYR IV SCH (09:19)
[2022-06-30] MEDS: cefTRIAXone 1GM/50ML D5W 50 ML IV SCH (09:19)
[2022-06-30] MEDS ORDERED: PANTOPRAZOLE 40 MG/10 ML VIAL INJ IV SCH (10:00)
[2022-06-30] MEDS: ENOXAPARIN SOD 40 MG/0.4 ML SYRINGE SC SCH (10:53)
[2022-06-30] MEDS: DexAMETHasone SOD PHOS 10MG/1ML VIAL INJ IV SCH (11:55)
[2022-06-30] MEDS: ASPirin 81 mg TAB PO SCH (11:55)
[2022-06-30] MEDS ORDERED: MORPHINE SULFATE INJ 2 MG/ml SYRG IV PRN (12:00)
[2022-06-30] MEDS ORDERED: LORazepam 2MG/ML-1ML VIAL IV PRN (12:00)
== END 2022-06-30 17:51 | DRG 870 ==
LOC: EDBD 17:33 → ER 17:53 → TELE 22:08 → ICU WEST 06-21 08:41
PROVIDERS: ADMIT Nurse Practitioner; ATTEND Internal Medicine Pulmonary Disease
PROC: 5A09357 Assistance with Respiratory Ventilation, Less than 24 Consecutive Hours, Continuous Positive Airway Pressure (ICD-10-PCS; 2022-06-19)
PROC: 5A1955Z Respiratory Ventilation, Greater than 96 Consecutive Hours (ICD-10-PCS; principal; 2022-06-20)
PROC: 0BH17EZ Insertion of Endotracheal Airway into Trachea, Via Natural or Artificial Opening (ICD-10-PCS; 2022-06-20)
PROC: XW033E5 Introduction of Remdesivir Anti-infective into Peripheral Vein, Percutaneous Approach, New Technology Group 5 (ICD-10-PCS; 2022-06-20)
PROC: 5A09357 Assistance with Respiratory Ventilation, Less than 24 Consecutive Hours, Continuous Positive Airway Pressure (ICD-10-PCS; 2022-06-20)
DX: A41.89 Other specified sepsis (principal); J12.82 Pneumonia due to coronavirus disease 2019; U07.1 COVID-19; J96.01 Acute respiratory failure with hypoxia; R65.21 Severe sepsis with septic shock; I47.2 Ventricular tachycardia; J44.0 Chronic obstructive pulmonary disease with (acute) lower respiratory infection; N17.9 Acute kidney failure, unspecified; Z99.11 Dependence on respirator [ventilator] status; I50.32 Chronic diastolic (congestive) heart failure; Z68.42 Body mass index [BMI] 45.0-49.9, adult; J91.8 Pleural effusion in other conditions classified elsewhere; Z66 Do not resuscitate; I11.0 Hypertensive heart disease with heart failure; I44.7 Left bundle-branch block, unspecified; I48.91 Unspecified atrial fibrillation; I89.0 Lymphedema, not elsewhere classified; E66.9 Obesity, unspecified; E87.5 Hyperkalemia; E03.9 Hypothyroidism, unspecified; Z80.0 Family history of malignant neoplasm of digestive organs; Z85.118 Personal history of other malignant neoplasm of bronchus and lung; Z80.1 Family history of malignant neoplasm of trachea, bronchus and lung; Z87.891 Personal history of nicotine dependence; Z92.3 Personal history of irradiation
CPT/HCPCS: 36415; 36569; 36600; 71045; 71250; 76604; 80048; 80053; 81001; 82728; 82805; 82962; 83605; 83615; 83735; 83880; 84484; 85025; 85379; 85610; 85730; 86141; 87040; 87070; 87081; 87205; 93005; 93306; 94002; 94003; 94640; 94660; 96365; 96366; 96367; 96375; 96376; 99291; G0378; J0696; J1100; J1815; J2250; J7060